=== PATIENT | female | born 1990 | race Caucasian/White ===

== ENCOUNTER 2025-04-08 09:49 | Emergency (ER) | payer OTHER ==
[~2025-04-08] VITALS: Ht 170.2 cm; Wt 89.1 kg
[2025-04-08 10:32] VITALS: TEMP 98
[2025-04-08 10:41] LABS: GLUCOMETER DEV NAME(LOC) ER.7; GLUCOSE,POINT OF CARE 215 MG/DL (70-110)
[2025-04-08 12:33] LABS: PLATELET COUNT (AUTO) 327 K/uL (150-450); RED BLOOD CELL COUNT(AUTO) 4.48 MIL/uL (4.00-5.20); RED CELL DISTRIBUTION WIDTH 12.5 % (11.5-14.5); WHITE BLOOD COUNT (AUTO) 10.0 K/uL (4.5-11.0)
[2025-04-08 12:40] LABS: CALCIUM, TOTAL 9.1 mg/dL (8.8-10.5); CREATININE 0.62 mg/dL (0.60-1.30); GLOMERULAR FILTR. RATE CALC > 60 mL/min (>60); GLUCOSE,RANDOM 186 mg/dL (70-110); SODIUM SERUM 137 mmol/L (136-145); UREA NITROGEN, BLOOD 6 mg/dL (7-18)
[2025-04-08 13:35] VITALS: BP 138/73; PULSE 94; RESP 16; O2SAT 98
[2025-04-08] MEDS: POTASSIUM CHLORIDE 20 MEQ ER TABLET PO ONE (13:40)
[2025-04-08] MEDS: MetFORMIN HCL 500 MG ER TABLET PO ONE (13:40)
== END 2025-04-08 13:41 ==
LOC: EMS 10:12
DX: E11.65 Type 2 diabetes mellitus with hyperglycemia (principal); I10 Essential (primary) hypertension; E87.6 Hypokalemia; Z65.3 Problems related to other legal circumstances
CPT/HCPCS: 80048; 82009; 82962; 84703; 85025; 93005; 99284

== ENCOUNTER 2025-04-09 14:28 | Emergency (ER) | payer OTHER ==
[~2025-04-09] VITALS: Ht 170.2 cm; Wt 86.4 kg
[2025-04-09 14:44] VITALS: TEMP 97.7
[2025-04-09 15:13] LABS: PLATELET COUNT (AUTO) 325 K/uL (150-450); RED BLOOD CELL COUNT(AUTO) 4.53 MIL/uL (4.00-5.20); RED CELL DISTRIBUTION WIDTH 12.7 % (11.5-14.5); WHITE BLOOD COUNT (AUTO) 9.3 K/uL (4.5-11.0)
[2025-04-09 15:17] LABS: CALCIUM, TOTAL 9.3 mg/dL (8.8-10.5); CREATININE 0.57 mg/dL (0.60-1.30); GLOMERULAR FILTR. RATE CALC > 60 mL/min (>60); GLUCOSE,RANDOM 155 mg/dL (70-110); SODIUM SERUM 137 mmol/L (136-145); UREA NITROGEN, BLOOD 6 mg/dL (7-18)
[2025-04-09 15:26] LABS: LACTIC ACID 1.1 mmol/L (0.4-2.0); TROPONIN I-HIGH SENSITIVITY 6 ng/L (<51)
[2025-04-09] MEDS ORDERED: LOSARTAN POTASSIUM 50 MG TABLET PO ONE (15:45)
[2025-04-09 15:49] VITALS: BP 131/75; PULSE 85; RESP 18; O2SAT 99
[2025-04-09] MEDS: LOSARTAN POTASSIUM 25 MG TABLET PO ONE (15:56)
== END 2025-04-09 17:25 | disposition home or self-care (01) ==
LOC: EMS 14:28
DX: E11.8 Type 2 diabetes mellitus with unspecified complications (principal); E11.65 Type 2 diabetes mellitus with hyperglycemia; I10 Essential (primary) hypertension; Z65.3 Problems related to other legal circumstances; Z79.899 Other long term (current) drug therapy
CPT/HCPCS: 71045; 80048; 83036; 83605; 83690; 84484; 84703; 85025; 93005; 93306; 99285; 36415-L1; 36415-TC